=== PATIENT | female | born 1990 | race African-American/Black ===

== ENCOUNTER 2017-10-07 17:29 | Emergency (ER) | payer SELFPAY ==
[~2017-10-07] VITALS: Ht 160 cm; Wt 74.4 kg
[~2017-10-07 17:29] MED LIST: BACTRIM DS TAB1 EACH PO; FLAG500 PO; IBUPROFEN800 M1 PO; PREDNISONE50 M1 PO; PROTONIX40 M3 PO; PYRIDIUM200 M1 PO; VENTOLIN HFA18 GM INH; ZITHROMAX250 M2 PO
--- NOTE | 2017-10-07 17:52 | ED GI/GU/ABDOMINAL COMPLAINT ---
History of Present Illness General Chief Complaint: Female Urogenital Problems Stated Complaint: APPROX 4WKS PREG, STARTED WITH BLEEDING X TODAY Source: patient Exam Limitations: no limitations Vital Signs & Intake/Output Vital Signs & Intake/Output Vital Signs Date Time Temp Pulse Resp B/P B/P Pulse O2 O2 Flow FiO2 Mean Ox Delivery Rate 10/07 1834 98.8 66 18 127/80 100 Room Air 10/07 1747 Room Air 10/07 1741 98.2 86 19 100 Room Air Room Air Allergies Coded Allergies: No Known Allergies (05/29/17) Reconcile Medications Albuterol Sulfate (Ventolin Hfa) 90 MCG HFA.AER.AD 2 PUF INH Q4-6 PRN PRN WHEEZE Azithromycin (Zithromax) 250 MG TABLET 1 DP PO AD BRONCHITIS Ibuprofen 800 MG TABLET 1 TAB PO TID PRN pain Metronidazole (Flagyl) 500 MG TAB 500 MG PO TID BV Pantoprazole Sodium (Protonix) 40 MG TABLET.DR 1 TAB PO DAILY gerd Phenazopyridine HCl (Pyridium) 200 MG TABLET 1 TAB PO TID DYSUIRA Prednisone 50 MG TABLET 1 TAB PO DAILY BRONCHITIS/WHEEZING Sulfamethoxazole/Trimethoprim (Bactrim Ds Tablet) 1 EACH TABLET 1 TAB PO BID URINARY INFECTION Triage Note: PT TO ED WITH C/O VAGINAL BLEEDING TODAY, HAS HAD SOME SMALL BROWN SPOTTING, BUT TODAY BRIGHT RED BLOOD WITH CRAMPING. MILLING PLANER OPERATOR DR ARTEAGA IN [place]. Triage Nurses Notes Reviewed? yes ? y Is pt currently ? No Onset: Abrupt Duration: day(s): (few) Timing: recent history Quality/Severity: cramping No Modifying Factors: none HPI: 26-year-old had a positive test this past Tuesday with an ultrasound done on Tuesday by MILLING PLANER OPERATOR that showed nothing comes in for cramping and bleeding. Her hormone level on Tuesday was 51. She is not sure what it was on Tuesday. She's had some bright red blood and some cramping lower abdominal pain and comes in for further evaluation. (Miguel Angel Fu) Past History Travel History Traveled to [place] past 21 day No Medical History Any Pertinent Medical History? 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 No (Miguel Angel Fu) Review of Systems Review of Systems Constitutional: Reports: no symptoms. EENTM: Reports: no symptoms. Respiratory: Reports: no symptoms. Cardiovascular: Reports: no symptoms. GI: Reports: no symptoms. Genitourinary: Reports: see HPI. Musculoskeletal: Reports: no symptoms. Skin: Reports: no symptoms. Neurological/Psychological: Reports: no symptoms. Hematologic/Endocrine: Reports: no symptoms. Immunologic/Allergic: Reports: no symptoms. All Other Systems: Reviewed and Negative (Miguel Angel Fu) Physical Exam Physical Exam General Appearance: well developed/nourished, no apparent distress, alert Head: atraumatic, normal appearance Eyes: Bilateral: normal appearance. Ears, Nose, Throat, Mouth: hearing grossly normal, moist mucous membrane Neck: normal inspection Respiratory: no respiratory distress Cardiovascular: regular rate/rhythm Gastrointestinal: soft Back: normal inspection Neurologic/Psych: awake, alert, oriented x 3 Skin: intact, normal color Core Measures ACS in differential dx? No Sepsis Present: No Sepsis Focused Exam Completed? No (Miguel Angel Fu) Progress Differential Diagnosis: ectopic , intrauterine , threatened AB , UTI/pyelo Plan of Care: Orders Procedure Date/time Status US TRANSVAG 10/07 1920 Active HUMAN BETA HCG TITRE 10/07 1733 Complete COMPREHENSIVE METABOLIC PANEL 10/07 1732 Complete CBC WITHOUT DIFFERENTIAL 10/07 1732 Complete RHOGAM WORK-UP 10/07 173 Complete Laboratory Tests 10/07/17 1759: Anion Gap 12, Estimated GFR > 60, BUN/Creatinine Ratio 15.7, Glucose 80, Calcium 9.3, Total Bilirubin 0.4, AST 13 L, ALT 25, Alkaline Phosphatase 44, Total Protein 7.5, Albumin 4.2, Globulin 3.3, Albumin/Globulin Ratio 1.3, Beta HCG, Quant 51.6, CBC w Diff NO MAN DIFF REQ, RBC 4.09 L, MCV 82.2, MCH 26.6 L, MCHC 32.4 L, RDW 14.8 H, MPV 7.1 L, Gran % 59.3, Lymphocytes % 29.5, Monocytes % 8.8, Eosinophils % 1.6, Basophils % 0.8, Absolute Granulocytes 3.9, Absolute Lymphocytes 1.9, Absolute Monocytes 0.6, Absolute Eosinophils 0.1, Absolute Basophils 0 Patient signed out to me by Miguel Angel Espinosa. No further symptoms. Ultrasound is normal. Will be discharged home and follow up in 2 days with repeat hCG and ultrasound with her MILLING PLANER OPERATOR at [place]. (Virgilio Jones MD) Diagnostic Imaging: Viewed by Me: Ultrasound. Discussed w/RAD: Ultrasound. Initial ED EKG: none Hand-Off Endorsed To: Virgilio Jones MD Endorsed Time: 1922 Pending: ultrasound Comments: PATIENT: ROBBIE WELCH PRESENT AGE: 26 PATIENT ACCOUNT NO: [id number] : 91 LOCATION: [facility] ORDERING PHYSICIAN: Miguel Angel SCHULTE SERVICE DATE: 10/07/17 EXAM TYPE: US - US TRANSVAG EXAMINATION: ULTRASOUND PELVIC, COMPLETE CLINICAL INFORMATION: Vaginal bleeding. Lower abdominal cramping. Quantitative 51. COMPARISON: None. TECHNIQUE: Transvaginal: Used to better visualize pelvic structures Transabdominal: Not adequate for visualization. Spectral Doppler and color Doppler exam was utilized. LMP: Uncertain FINDINGS: UTERUS: Unremarkable. Uterus measures 8.5 x 4.2 x 5.1 cm. Endometrial thickness 0.6 cm. Cervical length 4.6 cm ADNEXA: Ovarian vascularity:Doppler demonstrates both arterial and venous vascular flow in the right and left ovary. No evidence of ovarian torsion. Right Ovary: . There appear to be a few tiny calcifications associated with the right ovary. The right ovary measures 4.4 x 1.7 x 2.5 cm. Volume 8.5 mL. Left Ovary: There. There are a few tiny calcifications associated with the left ovary. The left ovary measures 2.8 x 1.4 x 2.8 cm. Volume 5.7 mL. There is a questionable isoechoic area in left adnexa that does not show any abnormal vascular flow on Doppler no cystic changes. Measures 2.3 x 1.3 x 1.5 cm. Uncertain significance. There is no gestational sac or pole in either adnexa. Cul-de-sac: No Fluid IMPRESSION: Normal ultrasound of pelvis. This critical result was discussed with Dr. Buck on 10/07/2017, 8:45 PM and it was ascertained that the content and urgency of the report was understood at the time of direct communication. DICTATED BY: Uriel Quijano MD DATE/TIME DICTATED:10/07/172017 ELEMENTARY SECRETARY:CADEN DATE/TIME TRANSCRIBED:10/07/172017 CONFIDENTIAL, DO NOT COPY WITHOUT APPROPRIATE AUTHORIZATION. <Electronically signed in Other Vendor System> SIGNED BY: Uriel Quijano MD 10/07/172051 (Miguel Angel Fu) Departure Departure Disposition: HOME OR SELF CARE Condition: Stable Clinical Impression Primary Impression: Vaginal bleeding before 22 weeks gestation Secondary Impressions: Abdominal pain affecting Referrals: Patient Has No Primary Care Dr Additional Instructions: Follow-up with your chalk molding machine operator on Tuesday for a repeat beta hCG titer and a repeat ultrasound. Return immediately if any increased pain or any other concerns worsening symptoms. Please go over all results of today's visit with your primary care doctor. Contact your primary care doctor to let them know you were here in the emergency room. There may be nonspecific findings which may not be related to your visit today here in the emergency room but may require further evaluation and chronic monitoring by your primary care doctor. If you had a laceration today the chance of foreign body always remains. You should follow-up with your primary care doctor for recheck in 3-5 days for a wound check. If you had an x-ray done there is a chance that a fracture could have been missed on initial read and you should follow-up with your primary care doctor for repeat x-rays if symptoms persist. If your blood pressure was elevated here in the emergency room please have rechecked by [facility] primary care doctor within the next 48. If you were prescribed a narcotic here in the emergency room or any type of controlled substances you're not allowed to drive while taking this medication or operate any type of heavy machinery. Narcotics can make you feel lightheaded dizziness nausea and can cause constipation. You may need to pickling operator a stool softener. Thank you for choosing [facility] emergency room. Please return to the emergency room immediately if you have any other concerns worsening of symptoms. Departure Forms: Customer Survey General Discharge Information (Miguel Angel Fu) Departure Comments 10/07/17, 20:46,,,, discussed with [facility]... no sign of ectopic. PA/PHOTO COLORER Co-Sign Statement Statement: ED Attending supervision documentation- [] I saw and evaluated the patient. I have also reviewed all the pertinent lab results and diagnostic results. I agree with the findings and the plan of care as documented in the PA's/PHOTO COLORER's documentation. [x] I have reviewed the ED Record and agree with the PA's/PHOTO COLORER's documentation. [] Additions or exceptions (if any) to the PAs/PHOTO COLORER's note and plan are summarized below: [] (Heber INGRAM,Lance Shane)
[2017-10-07 18:19] LABS: ABSOLUTE BASOPHIL COUNT 0 /CUMM (0.0-0.2); ABSOLUTE EOSINOPHIL COUNT 0.1 /CUMM (0.0-0.7); ABSOLUTE GRANULOCYTE CT 3.9 /CUMM (1.4-6.5); ABSOLUTE LYMPH COUNT 1.9 /CUMM (1.2-3.4); ABSOLUTE MONOCYTE COUNT 0.6 /CUMM (0.10-0.60); BASOPHIL % 0.8 % (0.0-2.0); EOSINOPHIL % 1.6 % (0-5); GRANULOCYTE % 59.3 % (42.2-75.2); HEMATOCRIT 33.6 % (37-47); MEAN CORPUSCULAR HGB 26.6 PG (27.0-31.0); MEAN CORPUSCULAR HGB CONC 32.4 G/DL (33.0-37.0); MEAN CORPUSCULAR VOLUME 82.2 FL (81.0-99.0); MEAN PLATELET VOLUME 7.1 FL (7.4-10.4); PLATELET COUNT 367 /CUMM (130-400); RBC DISTRIBUTION WIDTH 14.8 % (11.5-14.5); RED BLOOD CELL CT 4.09 /CUMM (4.20-5.40); WHITE BLOOD CELL COUNT 6.5 /CUMM (4.8-10.8)
--- NOTE | 2017-10-07 20:52 | ULTRASOUND REPORT ---
EXAMINATION: ULTRASOUND PELVIC, COMPLETE CLINICAL INFORMATION: Vaginal bleeding. Lower abdominal cramping. Quantitative 51. COMPARISON: None. TECHNIQUE: Transvaginal: Used to better visualize pelvic structures Transabdominal: Not adequate for visualization. Spectral Doppler and color Doppler exam was utilized. LMP: Uncertain FINDINGS: UTERUS: Unremarkable. Uterus measures 8.5 x 4.2 x 5.1 cm. Endometrial thickness 0.6 cm. Cervical length 4.6 cm ADNEXA: Ovarian vascularity:Doppler demonstrates both arterial and venous vascular flow in the right and left ovary. No evidence of ovarian torsion. Right Ovary: . There appear to be a few tiny calcifications associated with the right ovary. The right ovary measures 4.4 x 1.7 x 2.5 cm. Volume 8.5 mL. Left Ovary: There. There are a few tiny calcifications associated with the left ovary. The left ovary measures 2.8 x 1.4 x 2.8 cm. Volume 5.7 mL. There is a questionable isoechoic area in left adnexa that does not show any abnormal vascular flow on Doppler no cystic changes. Measures 2.3 x 1.3 x 1.5 cm. Uncertain significance. There is no gestational sac or pole in either adnexa. Cul-de-sac: No Fluid IMPRESSION: Normal ultrasound of pelvis. This critical result was discussed with Dr. Buck on 10/07/2017, 8:45 PM and it was ascertained that the content and urgency of the report was understood at the time of direct communication.
[2017-10-07 21:01] VITALS: BP 117/78
== END 2017-10-07 20:59 ==
LOC: ERH 17:29
PROVIDERS: Physician Assistant Medical
DX: O20.9 Hemorrhage in early pregnancy, unspecified (principal); Z3A.01 Less than 8 weeks gestation of pregnancy
CPT/HCPCS: 76817